=== PATIENT | female | born 1990 | race Caucasian/White ===

== ENCOUNTER 2016-08-26 12:38 | Emergency (ER) | payer BC ==
[~2016-08-26] VITALS: Ht 160 cm; Wt 54.4 kg
[~2016-08-26 12:38] MED LIST: METH4TAB2 PO
[2016-08-26 12:42] VITALS: BP 105/73
--- NOTE | 2016-08-26 13:24 | PHYS DOC ---
Past Medical History Past Medical History: Anxiety, Other Additional Past Medical Histor: ADD Past Surgical History: No Surgical History Alcohol Use: Occasionally Drug Use: None Adult General Chief Complaint Chief Complaint: Neck Pain HPI HPI Patient is a 26 year old male presents emergency department stating that the left anterior part of her neck as been swollen since 10:30 this morning. She states that she has increased pain with swallowing. She denies any cough congestion. She states that this is happened approximately 5 months ago when she was placed on steroids and states that she had all the side effects to steroids that he could possibly have. She states she'll never been on steroids again. Patient states she did take Benadryl to help with the pain and discomfort as she did not have any Tylenol or ibuprofen. Patient states that the swelling of the neck has occurred frequently. Patient states had not been able to identify the cause of the swelling. She states sometimes she compression the area and pop it back into place. Patient denies any trauma. She denies any shortness of breath or difficulty breathing. Review of Systems Review of Systems Constitutional: Denies fever or chills [] Eyes: Denies change in visual acuity, redness, or eye pain [] HENT: Denies nasal congestion or sore throat. C/o left neck pain and discomfort Respiratory: Denies cough or shortness of breath [] Cardiovascular: No additional information not addressed in HPI [] GI: Denies abdominal pain, nausea, vomiting, bloody stools or diarrhea [] : Denies dysuria or hematuria [] Musculoskeletal: Denies back pain or joint pain [] Integument: Denies rash or skin lesions [] Neurologic: Denies headache, focal weakness or sensory changes [] Current Medications Current Medications Current Medications Medications (Trade) Dose Ordered Sig/[facility] Start Time Stop Time Status Last Admin Dose Admin Dexamethasone Sodium Phosphate (Decadron) 10 mg 1X ONCE 08/26/16 13:30 08/26/16 13:31 DC 08/26/16 13:53 10 MG Ketorolac Tromethamine (Toradol Im) 60 mg 1X ONCE 08/26/16 13:30 08/26/16 13:31 DC 08/26/16 13:53 60 MG Methylprednisolone Sodium Succinate (Solu-Medrol 125mg Vial) 125 mg 1X ONCE 08/26/16 13:30 08/26/16 13:30 DC Allergies Allergies Allergies Coded Allergies Type Severity Reaction Last Updated Verified No Known Drug Allergies 04/04/16 No Physical Exam Physical Exam Constitutional: Well developed, well nourished, no acute distress, non-toxic appearance. [] HENT: Normocephalic, atraumatic, bilateral external ears normal, oropharynx moist, no oral exudates, nose normal. Bilateral tympanic membranes appear to be normal. Throat with slight erythematous. No uvula deviation noted. No swelling noted No anterior cervical adenopathy noted. Patient able to maintain her own saliva. Patient is able to talk in full sentences. She is able to drink water at the bedside. Eyes: PERRLA, EOMI, conjunctiva normal, no discharge. [] Neck: Normal range of motion, no tenderness, supple, no stridor. [] Cardiovascular:Heart rate regular rhythm, no murmur [] Lungs & Thorax: Bilateral breath sounds clear to auscultation [] Skin: Warm, dry, no erythema, no rash. [] Back: No tenderness Extremities: No tenderness, no cyanosis, no clubbing, ROM intact, no edema. [] Neurologic: Alert and oriented X 3, normal motor function, normal sensory function, no focal deficits noted. [] Psychologic: Affect normal, judgement normal, mood normal. [] Current Patient Data Vital Signs Vital Signs Date Time Temp Pulse Resp B/P Pulse Ox O2 Delivery O2 Flow Rate FiO2 08/26/16 12:42 97.8 83 16 105/73 99 Room Air 97.8 Lab Values Laboratory Tests Test 08/26/16 12:49 POC Urine HCG, Qualitative Hcg negative (Negative) EKG EKG [] Radiology/Procedures Radiology/Procedures [] [facility] [address] [place] [address] IMAGING REPORT Signed PATIENT: SERGO BANKS ACCOUNT: [id number] : 1990 LOCATION: ER AGE: 26 SEX: F EXAM STATUS: REG ER ORD. PHYSICIAN: ANNAMARIE RDZ APRN REASON: patient feels swelling to the left anterior neck PROCEDURE: NECK SOFT TISSUE Indication swelling left neck. Soft tissue examination of the neck was performed. AP and lateral views were obtained. Visualized bony structures appear grossly intact. The epiglottis and prevertebral soft tissues appear normal. Some physiologic calcification is noted. IMPRESSION: Normal soft tissue examination of the neck DICTATED and SIGNED BY: RADHA BLACK MD DATE: 08/26/16 5042 CC: ANNAMARIE RDZ APRN; NON,STAFF; ANA SANTIAGO ~ Course & Med Decision Making Course & Med Decision Making Pertinent Labs and Imaging studies reviewed. (See chart for details) Rapid strep was negative. Patient will be provided an x-ray will be provided as a decadron injection and toradol, X-rays were negative for any abnormalities in the soft tissue area of the throat. Will be discharged home on Decadron with recommendations to follow-up with an ENT. Signs symptoms to return back to emergency department provided. She 'll be discharged home in stable condition. [] Dragon Disclaimer Dragon Disclaimer This electronic medical record was generated, in whole or in part, using a voice recognition dictation system. Departure Departure Impression: Primary Impression: Throat pain Disposition: 01 HOME, SELF-CARE Condition: STABLE Referrals: ANA SANTIAGO (PCP) Patient Instructions: Sore Throat, [id number] Additional Instructions: Home to rest. Medications as prescribed. Follow-up with ENT within the next 3-5 days. He may contact Dr. Ernst at [phone] when you contact the office make sure you let them know that you are [facility] resident. He may take Tylenol or ibuprofen for pain and discomfort. Return to emergency department for signs and symptoms of become worse. Scripts Dexamethasone 4 Mg Tablet4 Tab PO BID #10 TAB Prov:ANNAMARIE RDZ APRN 08/26/16 ANNAMARIE RDZ APRN Aug 26, 2016 13:23
[2016-08-26] MEDS ORDERED: methylPREDNISolone SOD SUCC PF 125 MG/2 ML VIAL. IM ONE (13:30)
[2016-08-26] MEDS ORDERED: DEXAMETHASONE SOD PHOS 20 MG/5 ML VIAL. IM ONE (13:30)
[2016-08-26] MEDS ORDERED: KETOROLAC TROMETHAMINE 60 MG/2 ML SYRINGE. IM ONE (13:30)
--- NOTE | 2016-08-26 13:42 | RAD ---
Indication swelling left neck. Soft tissue examination of the neck was performed. AP and lateral views were obtained. Visualized bony structures appear grossly intact. The epiglottis and prevertebral soft tissues appear normal. Some physiologic calcification is noted. IMPRESSION: Normal soft tissue examination of the neck
[2016-08-26] MEDS ORDERED: DEXA4TAB PO (13:55)
[2016-08-27 08:03] LABS: NEGATIVE OBC STREP NEG
[2016-08-27 08:04] LABS: POSITIVE OBC STREP POS
== END 2016-08-26 14:25 | disposition home or self-care (01) ==
LOC: ER 12:38
DX: R07.0 Pain in throat (principal); R22.1 Localized swelling, mass and lump, neck; M54.2 Cervicalgia; F98.8 Other specified behavioral and emotional disorders with onset usually occurring in childhood and adolescence
CPT/HCPCS: 70360; 81025; 87070; 87880; 96372; 99285; J1100; J1885

== ENCOUNTER → 2016-09-18 | Outpatient (CLI) | payer BC ==
[2016-08-26 12:42] VITALS: BP 105/73
[~2016-09-18] MED LIST changes: +DEXA4TAB PO
--- NOTE | 2016-09-18 16:20 | KCIC ---
PROCEDURE Thyroid ultrasound HISTORY Tonsil stones. COMPARISON None FINDINGS Thyroid isthmus measures 1-2 millimeters. Right thyroid measures 15 millimeters by 12 millimeters x 48 millimeters. Left thyroid measures 15 millimeter by 12 millimeter x 38 millimeter. No thyroid lesions are identified. IMPRESSION Unremarkable thyroid ultrasound. Electronically signed by: Mark Ahmadi MD (Sep 18, 2016 16:19:10)
== END | disposition home or self-care (01) ==
LOC: KCIC US 15:26
PROVIDERS: ATTEND Otolaryngology
DX: J35.01 Chronic tonsillitis (principal)
CPT/HCPCS: 76536